=== PATIENT | male | born 1960 | race Caucasian/White ===

== ENCOUNTER 2016-06-09 09:27 | Outpatient (CLI) | payer BC | END 2016-06-09 09:28 | disposition home or self-care (01) | DX: J18.9 Pneumonia, unspecified organism (principal) ==

== ENCOUNTER 2018-12-11 09:46 | Outpatient (CLI) | payer OTHER ==
[2018-12-11 17:20] LABS: BASOPHILS # (AUTO) 0.1 10^3/uL (0.0-0.1); BASOPHILS % (AUTO) 1.4 %; EOSINOPHILS # (AUTO) 0.2 10^3/uL (0.0-0.7); EOSINOPHILS % (AUTO) 3.6 %; HGB - HEMOGLOBIN 14.7 g/dL (14.0-18.0); LYMPHOCYTES # (AUTO) 1.6 10^3/uL (1.5-3.5); MEAN CORPUSCULAR HEMOGLOBIN 31.5 pg (27.0-31.0); MEAN CORPUSCULAR HGB CONC 32.5 g/dL (32.0-36.0); MEAN PLATELET VOLUME 9.6 fL (7.4-11.4); MONOCYTES # (AUTO) 0.8 10^3/uL (0.0-1.0); MONOCYTES % (AUTO) 15.1 %; NEUTROPHILS # (AUTO) 2.9 10^3/uL (1.5-6.6); NEUTROPHILS % (AUTO) 51.7 %; PLT - PLATELET COUNT 351 10^3/uL (130-450); RED BLOOD COUNT 4.67 10^6/uL (4.70-6.10); RED CELL DISTRIBUTION WIDTH 12.8 % (12.0-15.0); WHITE BLOOD COUNT 5.6 x10^3/uL (4.8-10.8)
[2018-12-11 17:46] LABS: ALBUMIN 4.6 g/dL (3.2-5.5); ALBUMIN/GLOBULIN RATIO 1.6 (1.0-2.2); ALKALINE PHOSPHATASE 65 IU/L (42-121); ALT ALANINE AMINOTRANSFERASE 24 IU/L (10-60); AST ASPARTATE AMINOTRANSFERASE 29 IU/L (10-42); BUN - BLOOD UREA NITROGEN 14 mg/dL (6-20); CALCIUM 9.3 mg/dL (8.5-10.3); CARBON DIOXIDE - CO2 28 mmol/L (21-32); CHLORIDE 102 mmol/L (101-111); CHOL/HDL RATIO 2.8 (<5.0); CHOLESTEROL 223 mg/dL; GFR - MDRD 77 (>89); GLUCOSE 84 mg/dL (70-100); HDL CHOLESTEROL 81 mg/dL; LDL CHOLESTEROL,CALCULATED 127 mg/dL; LDL/HDL RATIO 1.6 (<3.6); SODIUM 138 mmol/L (135-145); TOTAL PROTEIN 7.5 g/dL (6.7-8.2); VLDL CHOLESTEROL 15 mg/dL
== END 2018-12-11 09:47 | disposition home or self-care (01) ==
LOC: LAB.S 09:46
PROVIDERS: ATTEND Family Medicine
DX: R03.0 Elevated blood-pressure reading, without diagnosis of hypertension (principal)
CPT/HCPCS: 36415; 80053; 80061; 83721; 85025

== ENCOUNTER 2021-07-02 08:55 | Day surgery (SDC) | payer OTHER ==
[2021-07-02] MEDS ORDERED: LACTATED RINGERS 1,000 ML IV ONE ×2 (09:11→11:01)
--- NOTE | 2021-07-02 09:44 | ANESTHESIA ---
Pre-Anesthesia VS, & Labs - Diagnosis early satiety, screening - Procedure EGD, Colonoscopy Height: 5 ft 11 in Weight (kg): 72.8 kg Body Mass Index: 22.4 BMI Classification: Healthy weight - NPO >8 hours Home Medications and Allergies Home Medications: Ambulatory Orders No Known Home Medications 07/01/21 No Known Home Medications 07/01/21 Allergies/Adverse Reactions: Allergies Allergy/AdvReac Type Severity Reaction Status Date / Time No Known Drug Allergies Allergy Verified 07/01/21 12:43 Anes History & Medical History - Anesthetic History Anesthesia Complications: reports: No previous complications Family history of Anesthesia Complications: Denies Family history of Malignant Hyperthermia: Denies - Medical History Cardiovascular: reports: None, Other (hx of CP/SOB, stress test neg 2 yrs ago. Currently LBB. Pt asymptomatic) Pulmonary: reports: None Gastrointestinal: reports: None Urinary: reports: None Musculoskeletal: reports: None Endocrine/Autoimmune: reports: None Skin: reports: None Smoking Status: Never smoker Psychosocial: reports: Anxiety History of Cancer?: No Exam General: Alert, Oriented x3, Cooperative Dental: WNL Mouth Openin Fingerbreadth Neck Mobility: Normal Mallampati classification: I Thyromental Distance: 4-6 cm Respiratory: Lungs clear Cardiovascular: Regular rate Plan Anesthesia Type: Total IV Consent for Procedure(s) Verified and Reviewed: Yes Code Status: Attempt Resuscitation ASA classification: 2-Mild systemic disease Is this case an emergency?: No
--- NOTE | 2021-07-02 10:09 | HISTORY & PHYSICAL EXAMINATION ---
Chief Complaint - Chief Complaint Chief Complaint: here for egd and colonoscopy History of Present Illness - History Obtained From Records Reviewed: yes History obtained from: pt Exam Limitations: none - History of Present Illness HPI Comment/Other: occasional early satiety. due for colon cancer screening. no history polyps or colon problems History - Past Medical History Cardiovascular: reports: None, Other (hx of CP/SOB, stress test neg 2 yrs ago. Currently LBB. Pt asymptomatic) Respiratory: reports: None Endocrine/Autoimmune: reports: None GI: reports: None : reports: None HEENT: reports: Dental implants Psych: reports: None Musculoskeletal: reports: None Derm: reports: None MRSA Hx?: No - POLST Patient has POLST: No POLST Status: Full Code Meds/Allgy - Home Medications Home Medications: Ambulatory Orders Medication Instructions Recorded Confirmed No Known Home Medications 07/01/21 07/01/21 - Allergies Allergies/Adverse Reactions: Allergies Allergy/AdvReac Type Severity Reaction Status Date / Time No Known Drug Allergies Allergy Verified 07/01/21 12:43 Review of Systems - Other Findings Other Findings: 10 pt ros as above otherwise unremarkable Exam - Vital Signs Reviewed Vital Signs: Yes - Physical Exam General Appearance: positive: No acute distress, Alert Eyes Bilateral: positive: PERRL, EOMI, No scleral icterus ENT: positive: No signs of dehydration Neck: positive: No JVD, Trachea midline Respiratory: positive: No respiratory distress, Breath sounds nml Cardiovascular: positive: Regular rate & rhythm Abdomen: positive: Non-tender, No distention Neurologic/Psychiatric: positive: Oriented x3 Conclusion/Plan - Problem List (1) Colon cancer screening Conclusion/Plan: plan colonoscopy and egd for early satiety. parq held and consent obtained
[2021-07-02] MEDS ORDERED: LIDOCAINE-MPF 2% 5 ML VIAL ONE (10:26)
[2021-07-02] MEDS ORDERED: PROPOFOL 500 MG/50 ML 500 MG/50 ML VIAL ONE (10:26)
--- NOTE | 2021-07-02 11:13 | ANESTHESIA POST OP EVALUATION ---
Anesthesia Post Eval - Post Anesthesia Eval Vitals: Last Vital Signs Temp 36.7 C 07/02/21 11:01 Pulse 67 07/02/21 11:01 Resp 16 07/02/21 11:01 BP 120/74 07/02/21 11:01 Pulse Ox 97 07/02/21 11:01 CV Function Including HR & BP: Stable Pain Control: Satisfactory Nausea & Vomiting: Negative Mental Status: Baseline Respiratory Status: Airway Patent Hydration Status: Satisfactory Anesthesia Complications: None
[2021-07-02 11:17] VITALS: BP 132/94
== END 2021-07-02 08:56 | disposition home or self-care (01) ==
LOC: SDS 08:55
PROVIDERS: ATTEND Surgery
PROC: 0DB78ZX Excision of Stomach, Pylorus, Via Natural or Artificial Opening Endoscopic, Diagnostic (ICD-10-PCS; 2021-07-02)
PROC: 0DBN8ZX Excision of Sigmoid Colon, Via Natural or Artificial Opening Endoscopic, Diagnostic (ICD-10-PCS; principal; 2021-07-02 10:00)
PROC: 0DB98ZX Excision of Duodenum, Via Natural or Artificial Opening Endoscopic, Diagnostic (ICD-10-PCS; 2021-07-02 10:00)
DX: Z12.11 Encounter for screening for malignant neoplasm of colon (principal); R68.81 Early satiety; D12.5 Benign neoplasm of sigmoid colon; K57.30 Diverticulosis of large intestine without perforation or abscess without bleeding; K29.50 Unspecified chronic gastritis without bleeding; I44.7 Left bundle-branch block, unspecified
CPT/HCPCS: 43239; 45380; 93005; J7120

== ENCOUNTER 2023-09-19 04:23 | Emergency (ER) | payer OTHER ==
--- NOTE | 2023-09-19 05:40 | ED Physician Documentation ---
History of Present Illness - Stated complaint Stated Complaint: SWOLLEN TONGUE/UNABLE TO SWALLOW - Chief complaint Chief Complaint: Heent - History obtained from History obtained from: Patient - Additonal information Additional information: HPI from patient. Patient woke this morning at approximately 3 AM with tongue swelling. Initially it was only right-sided but gradually the entire tongue has become swollen (although he still senses greater swelling on the right side). The swelling subsequently has spread to the submandibular areas bilaterally, again greater on the right, and the right side of his neck. He denies sensation of throat closing/constriction. He denies dyspnea, cough, wheezing, rash, pruritis, lightheadedness. Denies h/o similar symptoms. He does not take any medications including JASPAL inhibitors. There was no apparent inciting event. PD PAST MEDICAL HISTORY - Past Medical History Past Medical History: Yes Cardiovascular: None, Other Respiratory: None Endocrine/Autoimmune: None GI: None : None HEENT: Dental implants Psych: None Musculoskeletal: None Derm: None - Past Surgical History Past Surgical History: Yes - Present Medications Home Medications: Ambulatory Orders Medication Instructions Recorded Confirmed No Known Home Medications 07/01/21 07/01/21 - Allergies Allergies/Adverse Reactions: Allergies Allergy/AdvReac Type Severity Reaction Status Date / Time No Known Drug Allergies Allergy Verified 07/01/21 12:43 - Social History Does the pt smoke?: No Smoking Status: Never smoker Does the pt drink ETOH?: Yes Does the pt have substance abuse?: No - Immunizations Immunizations are current?: Yes - POLST Patient has POLST: No POLST Status: Full Code PD ED PE NORMAL - Vitals Vital signs reviewed: Yes - General General: Alert and oriented X 3, No acute distress, Well developed/nourished - HEENT HEENT: Moist mucous membranes, Other (moderate tongue swelling that grossly appears symmetric. visualization of the posterior oropharynx is facilitated with use of tongue depressor, and the posterior o/p is without edema. airway is patent despite tongue swelling. ) - Neck Neck: Other (mild-moderate bilateral submandibular swelling with moderate bilateral submandibular fullness to palpation. No erythema, no TTP, no crepitus, and not hot to touch) - Respiratory Respiratory: No respiratory distress, Clear bilaterally - Derm Derm: No rash Results - Vitals Vitals: Oxygen O2 Source Room air - Labs Labs: Laboratory Tests 09/19/23 09/19/23 09/19/23 06:08 06:08 06:08 WBC 11.3 H RBC 4.63 L Hgb 14.3 Hct 43.6 MCV 94.2 H MCH 30.9 MCHC 32.8 RDW 12.7 Plt Count 339 MPV 8.9 Neut # (Auto) 8.6 H Lymph # (Auto) 1.4 L [place] # (Auto) 0.9 Eos # (Auto) 0.3 Baso # (Auto) 0.1 Absolute Nucleated RBC 0.00 Nucleated RBC % 0.0 Sodium 137 Potassium 3.9 Chloride 106 Carbon Dioxide 24 Anion Gap 7.0 BUN 22 H Creatinine 1.1 Estimated GFR (MDRD) 68 L Glucose 87 Calcium 9.5 Total Bilirubin 0.8 AST 24 ALT 15 Alkaline Phosphatase 70 C-Reactive Protein 0.5 Total Protein 7.1 Albumin 4.4 Globulin 2.7 Albumin/Globulin Ratio 1.6 Lipase 21 Complement C4 27 PD Medical Decision Making - ED course Complexity details: reviewed results, re-evaluated patient, considered differential, d/w patient ED course: Presents with angioedema which seems likely idiopathic given no previous h/o similar symptoms and no apparent inciting event. IV established and CBC, BMP drawn and sent to lab with unremarkable results. He is given 25mg benadryl IV, 125mg solu-medrol IV, and 0.3mg IM epinephrine. On serial reevaluations, he reports gradual improvement and although I do not see any overt improvement in the tongue swelling, there is obvious improvement in the submandibular swelling with resolution of the right-sided submandibular fullness (to palpation) and only mild left-sided remaining. He is not improved enough for d/c by the end of my shift and thus care of patient is turned over to oncoming ED physician (Dr. 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 At your age this is sometimes a problem that will become chronic and you may need follow-up with allergy and immunology. [place]. In the meantime I have recommended you take 25 mg of Benadryl every 6 hours for the next 2 days. You can take alternatively a nonsedating antihistamine such as Myrtle. If you develop recurrence of the swelling today return to the emergency department for further treatment. Forms: PCP List Discharge Date/Time: 09/19/23 10:12
[2023-09-19] MEDS: diphenhydrAMINE INJ 50 MG/ML VIAL IVP STA (06:07)
[2023-09-19] MEDS: methylPREDNISolone SUCCINATE 125 MG/2 ML VIAL IVP STA (06:07)
[2023-09-19] MEDS: EPINEPHrine 1 MG/ML AMP IM STA (06:10)
[2023-09-19 06:14] LABS: BASOPHILS # (AUTO) 0.1 10^3/uL (0.0-0.1); BASOPHILS % (AUTO) 0.6 %; EOSINOPHILS # (AUTO) 0.3 10^3/uL (0.0-0.7); EOSINOPHILS % (AUTO) 2.9 %; HCT - HEMATOCRIT 43.6 % (42.0-52.0); HGB - HEMOGLOBIN 14.3 g/dL (14.0-18.0); LYMPHOCYTES # (AUTO) 1.4 10^3/uL (1.5-3.5); MEAN CORPUSCULAR HEMOGLOBIN 30.9 pg (27.0-31.0); MEAN CORPUSCULAR HGB CONC 32.8 g/dL (32.0-36.0); MEAN CORPUSCULAR VOLUME 94.2 fL (80.0-94.0); MEAN PLATELET VOLUME 8.9 fL (7.4-11.4); MONOCYTES # (AUTO) 0.9 10^3/uL (0.0-1.0); MONOCYTES % (AUTO) 7.8 %; NEUTROPHILS # (AUTO) 8.6 10^3/uL (1.5-6.6); NEUTROPHILS % (AUTO) 76.3 %; PLT - PLATELET COUNT 339 10^3/uL (130-450); RED BLOOD COUNT 4.63 10^6/uL (4.70-6.10); RED CELL DISTRIBUTION WIDTH 12.7 % (12.0-15.0); WHITE BLOOD COUNT 11.3 x10^3/uL (4.8-10.8)
[2023-09-19 06:31] LABS: ALBUMIN 4.4 g/dL (3.2-5.5); ALBUMIN/GLOBULIN RATIO 1.6 (1.0-2.2); BILIRUBIN,TOTAL 0.8 mg/dL (0.2-1.0); CALCIUM 9.5 mg/dL (8.5-10.3); CREATININE 1.1 mg/dL (0.6-1.3); CRP - C-REACTIVE PROTEIN 0.5 mg/dL (<0.5); POTASSIUM 3.9 mmol/L (3.5-4.5); TOTAL PROTEIN 7.1 g/dL (6.4-8.9)
[2023-09-19] MEDS: TRANEXAMIC ACID 1,000 MG in SODIUM CHLORIDE 0.9% 100ML 100 ML IV STA (08:36)
[2023-09-19 09:29] VITALS: O2SAT 98
--- NOTE | 2023-09-19 10:07 | ED Physician Documentation ---
ED Addendum - Addendum Addendum: 09/19/23 10:06 Papi Rios was left in my care at shift change continuing to recover from idiopathic angioedema. He is feeling much better now and feels safe to go home. I have requested the patient to take Benadryl 25 mg every 6 hours for the next 2 days. I have asked the patient to return to the emergency department if he has recurrence of his symptoms. I have also indicated the patient he may need further follow-up with allergy and immunology and we have provided primary care doctor follow-up for the patient. 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 At your age this is sometimes a problem that will become chronic and you may need follow-up with allergy and immunology. I have [place] a [place]. In the meantime I have recommended you take 25 mg of Benadryl every 6 hours for the next 2 days. You can take alternatively a nonsedating antihistamine such as Myrtle. If you develop recurrence of the swelling today return to the emergency department for further treatment. Forms: PCP List Discharge Date/Time: 09/19/23 10:12
[2023-09-19 10:25] VITALS: BP 145/79
== END 2023-09-19 10:12 | disposition home or self-care (01) ==
LOC: ED 04:23
DX: T78.3XXA Angioneurotic edema, initial encounter (principal)
CPT/HCPCS: 36415; 80053; 83690; 85025; 86140; 86160; 96372; 96374; 96375; 99283; 99285; J1200

== ENCOUNTER 2023-10-01 10:41 | Emergency (ER) | payer OTHER ==
[2023-10-01] MEDS: EPINEPHrine 1 MG/ML AMP IM STA (11:05)
[2023-10-01] MEDS: predniSONE 20 MG TABLET PO STA (11:28)
--- NOTE | 2023-10-01 11:55 | ED Physician Documentation ---
History of Present Illness - Stated complaint Stated Complaint: FACIAL SWELLING, TONGUE THROAT - Chief complaint Chief Complaint: Allergic Rx - History obtained from History obtained from: Patient - History of Present Illness Timing: Today Pain level max: 0 Pain level now: 0 - Additonal information Additional information: 62-year-old male presents to the emergency department complaint of facial swelling and lip swelling. States it started today. Similar symptoms 2 weeks ago of unclear cause. Does not take any medications at home. No allergens that he is aware of. No fevers, cough, congestion. No difficulty speaking or swallowing. No rashes. No hives. No new medications, soaps or detergents. No new foods. He states that he did have a allergic reaction to a bee sting a few weeks ago. Review of Systems Constitutional: denies: Fever, Chills Nose: denies: Rhinorrhea / runny nose, Congestion GI: denies: Vomiting, Diarrhea Musculoskeletal: denies: Neck pain, Back pain Neurologic: denies: Headache PD PAST MEDICAL HISTORY - Past Medical History Past Medical History: Yes Cardiovascular: None, Other Respiratory: None Endocrine/Autoimmune: None GI: None : None HEENT: Dental implants Psych: None Musculoskeletal: None Derm: None - Past Surgical History Past Surgical History: Yes - Present Medications Home Medications: Ambulatory Orders Medication Instructions Recorded Confirmed EPINEPHrine [Epinephrine] 0.3 mg IJ ONCE PRN #1 each 10/01/23 predniSONE [Deltasone] 10 mg PO [id number] #42 tab 10/01/23 - Allergies Allergies/Adverse Reactions: Allergies Allergy/AdvReac Type Severity Reaction Status Date / Time No Known Drug Allergies Allergy Verified 10/01/23 10:53 - Social History Does the pt smoke?: No Smoking Status: Never smoker Does the pt drink ETOH?: Yes Does the pt have substance abuse?: No - Immunizations Immunizations are current?: Yes - POLST Patient has POLST: No POLST Status: Full Code PD ED PE NORMAL - Vitals Vital signs reviewed: Yes - General General: Alert and oriented X 3, No acute distress, Well developed/nourished - HEENT HEENT: PERRL, Moist mucous membranes, Other (Swelling to the upper and lower lip. No significant tongue swelling. Normal phonation. No trismus.) - Neck Neck: Supple, no meningeal sign - Cardiac Cardiac: RRR, Strong equal pulses - Respiratory Respiratory: No respiratory distress, Clear bilaterally - Abdomen Abdomen: Soft, Non tender, Non distended - Derm Derm: Warm and dry, No rash - Neuro Neuro: Alert and oriented X 3 - Psych Psych: Normal mood, Normal affect Results - Vitals Vitals: Vital Signs - 24 hr 10/01/23 10/01/23 10/01/23 10:48 11:23 12:00 Temperature 36.2 C L Heart Rate 69 60 67 Respiratory 20 14 14 Rate Blood Pressure 157/106 H 170/95 H 160/108 H O2 Saturation 96 97 97 10/01/23 10/01/23 10/01/23 12:30 13:00 13:24 Temperature Heart Rate 66 68 73 Respiratory 14 16 14 Rate Blood Pressure 151/86 H 152/103 H 158/98 H O2 Saturation 96 96 97 Oxygen O2 Source Room air PD Medical Decision Making - ED course Complexity details: re-evaluated patient, considered differential, d/w patient, d/w family ED course: Patient is a 62-year-old male who presents to the emergency department angioedema with upper and lower lips. No tongue swelling. Normal phonation. No trismus. Given epinephrine IM, prednisone orally. Took Benadryl prior to arrival. Given a gram of TXA. Observed in the emergency department and symptoms nearly resolved. Unclear etiology, recommend that he follow-up with his PCP for further care and possible referral for allergy testing. Will place on steroids for home. Epinephrine pen written as well. Patient counseled regarding signs and symptoms for which I believe and urgent re-evaluation would be necessary. Patient with good understanding of and agreement to plan and is comfortable going home at this time This document was made in part using voice recognition software. While efforts are made to proofread this document, sound alike and grammatical errors may occur. Departure - Departure Disposition: Home, Self Care Clinical Impression: Angio-edema Qualifiers: Encounter type: initial encounter Qualified Code(s): T78.3XXA - Angioneurotic edema, initial encounter Condition: Good Instructions: ED Angioedema Follow-Up: Eileen Cleveland ARNP [Primary Care Provider] - Prescriptions: predniSONE [Deltasone] 10 mg PO [id number] #42 tab EPINEPHrine [Epinephrine] 0.3 mg IJ ONCE PRN #1 each PRN Reason: Anaphylaxis Comments: Your prescriptions were sent to the [facility] pharmacy. You should start on either a Zyrtec or Claritin daily as well. Please follow-up with your primary care provider for referral to an circuit court clerk or medical lab specialist for further testing. The cause of your angioedema is unclear. Forms: PCP List Discharge Date/Time: 10/01/23 13:25
[2023-10-01] MEDS ORDERED: TRANEXAMIC ACID 1,000 MG/10 ML VIAL ONE (12:26)
[2023-10-01] MEDS: TRANEXAMIC ACID 1,000 MG in SODIUM CHLORIDE 0.9% 100ML 100 ML IV STA (12:30)
[2023-10-01 13:33] VITALS: BP 158/98; O2SAT 97
== END 2023-10-01 13:25 | disposition home or self-care (01) ==
LOC: ED 10:41
DX: T78.3XXA Angioneurotic edema, initial encounter (principal)
CPT/HCPCS: 96365; 96372; 99283; 99284; J7512